=== PATIENT | female | born 1955 | race Two or more races ===

== ENCOUNTER 2024-06-11 11:15 | Emergency (ER) | payer MEDICARE ==
[~2024-06-11] VITALS: Ht 170.2 cm; Wt 65.9 kg
[2024-06-11 11:22] VITALS: TEMP 98.2
[2024-06-11] MEDS ORDERED: OMEP20 PO (11:31)
[2024-06-11] MEDS ORDERED: CIME300T PO (11:31)
[2024-06-11] MEDS ORDERED: CALC-1124 PO (11:31)
[2024-06-11] MEDS ORDERED: CHOL25TA4 PO (11:31)
[2024-06-11] MEDS ORDERED: ALEN70TA65 PO (11:31)
[2024-06-11] MEDS ORDERED: LEVO50 PO (11:31)
[2024-06-11] MEDS ORDERED: OXYB5TAB20 PO (11:31)
[2024-06-11 13:08] LABS: BASOPHILS % (AUTO) 0.8 % (0.0-2.0); EOSINOPHILS % (AUTO) 2.7 % (1.0-6.0); HEMATOCRIT 51.6 % (36-46); HEMOGLOBIN 15.8 g/dL (12.0-16.0); LYMPHOCYTES # (AUTO) 1.7 K/uL (1.0-4.8); LYMPHOCYTES % (AUTO) 11.7 % (22.0-44.0); MEAN CORPUSCULAR HEMOGLOBIN 20.8 pg (26.0-34.0); MEAN CORPUSCULAR HGB CONC 30.6 G/dL (31.0-37.0); MEAN CORPUSCULAR VOLUME 68 fL (80-100); MONOCYTES # (AUTO) 0.6 K/uL (0.1-1.0); MONOCYTES % (AUTO) 4.2 % (2.0-9.0); NEUTROPHILS # (AUTO) 11.6 K/uL (1.8-7.7); NEUTROPHILS % (AUTO) 80.6 % (40.0-70.0); PLATELET COUNT (AUTO) 502 K/uL (150-450); RED BLOOD CELL COUNT(AUTO) 7.58 MIL/uL (4.00-5.20); RED CELL DISTRIBUTION WIDTH 21.5 % (11.5-14.5); WHITE BLOOD COUNT (AUTO) 14.4 K/uL (4.5-11.0)
[2024-06-11 13:11] LABS: RBC MORPHOLOGY COMMENT ABNORMAL RBC MORPH
[2024-06-11 13:17] LABS: ANION GAP 5 mmol/L (8-16); CALCIUM, TOTAL 9.6 mg/dL (8.8-10.5); CARBON DIOXIDE 31 mmol/L (22-29); CHLORIDE 104 mmol/L (98-107); CREATININE 0.63 mg/dL (0.60-1.30); GLOMERULAR FILTR. RATE CALC > 60 mL/min (>60); GLUCOSE,RANDOM 92 mg/dL (70-110); POTASSIUM 4.3 mmol/L (3.5-5.1); SODIUM SERUM 140 mmol/L (136-145); UREA NITROGEN, BLOOD 15 mg/dL (7-18)
[2024-06-11] MEDS ORDERED: FURO-152 PO (14:18)
[2024-06-11] MEDS ORDERED: DOXY-354 PO (14:18)
[2024-06-11] MEDS ORDERED: CEPH-558 PO (14:18)
[2024-06-11] MEDS ORDERED: ROSU10TA72 PO (14:28)
[2024-06-11] MEDS: DOXYCYCLINE HYCLATE 100 MG TABLET PO ONE (14:37)
[2024-06-11] MEDS: CefTRIAXone SODIUM 1 GM/VIAL IM ONE (14:37)
[2024-06-11] MEDS: LIDOCAINE/PF 1% 2 ML VIAL IM ONE (14:37)
[2024-06-11 14:43] VITALS: BP 130/70; PULSE 72; RESP 18
== END 2024-06-11 15:19 | disposition home or self-care (01) ==
LOC: EMS 11:15
DX: L03.116 Cellulitis of left lower limb (principal); G89.29 Other chronic pain; M25.559 Pain in unspecified hip; E78.00 Pure hypercholesterolemia, unspecified; E03.9 Hypothyroidism, unspecified; Z98.890 Other specified postprocedural states; Z88.2 Allergy status to sulfonamides; Z88.8 Allergy status to other drugs, medicaments and biological substances
CPT/HCPCS: 99285; 93970; 80048; 85025; 85379; 36415; 96372; J0696; J3490